=== PATIENT | female | born 1935 | race Caucasian/White ===

== ENCOUNTER 2019-04-11 05:11 | Inpatient (IN) ==
[2019-04-11] MEDS ORDERED: *HR* Metoprolol 5 MG/5 ML VIAL IVP PRN ×3 (08:18→16:32)
[2019-04-11] MEDS ORDERED: Naloxone 0.4 MG/ML INJ IVP PRN ×3 (09:16→16:32)
[2019-04-11] MEDS ORDERED: 0.9 % Sodium Chloride 1,000 ML IVC SCH ×2 (09:30→10:17)
--- NOTE | 2019-04-11 09:44 | Internal Med History&Physical ---
<NabilnubiaanandAlexis hernandez - Last Filed: 04/11/19 16:34> Date of Encounter: 04/11/19 Time of Encounter: 09:15 Internal Medicine - H&P: HPI Chief complaint: Palpitations Admitted From: Hospital to Hospital Transfer History of present illness: Ms. Barrios is a 83 year old female with a past medical history of atrial fibrillation, coronary artery disease status post stent 2(2001, 2007), hypertension, [place] (2001), breast cancer with a past surgical history of a left mass chest left mastectomy that presents for palpitations. Patient says that she was recently diagnosed with atrial fibrillation 2 weeks ago at [facility]. Patient said that she normally sees Dr. Damico her systems software engineer at [facility]. After her diagnosis he had increased her metoprolol from 50 mg twice a day to 75 mg twice a day. She was also prescribed Zarrella toe however she has not taken it yet due to it being a mail-order medication that has not arrived ye t. She notes that last night 2 hours prior to presentation she was experiencing heart palpitations. Denied any chest pain or shortness of breath. He was taken to [facility] where she was noted to be in A. fib RVR with a heart rate of 120- 123. Patient was given 2 rounds of Cardizem but that that would not seem to help control her heart rate. Blood pressure was stable. Patient had had her Cardizem drip increased to 15 and was given metoprolol however did that did not seem to help again with her heart rate. She was subsequently started on Xarelto. Past Med Surg Social Fam HX - Past Medical History Medical history: atrial fibrillation, cancer, coronary artery disease, hypertension, malignancy, myocardial infarction Additional medical history: BREAST CANCER 2005 Psychiatric history: no psych history - Past Surgical History Surgical History: cholecystectomy, hysterectomy, knee replacement Additional surgical history: Lumpectomy. Left breast mastectomy. 2 cardiac strents - Social History Smoking Status: Former smoker Smokeless Tobacco Status: No Alcohol use: none Drug use: none - Family History Mother Adopted: No Living Status: Hx Family Cardiac Disorders: Yes Father Living Status: Hx Family Cancer: Yes (mouth cancer) Internal Medicine - H&P: Meds Aspirin 81 mg PO DAILY 07/20/15 [History] Esomeprazole Magnesium [Nexium] 40 mg PO DAILY 07/20/15 [History] Nitroglycerin [Nitrostat] 0.4 mg SL DAILY PRN 07/20/15 [History] Atorvastatin [Lipitor] 40 mg PO HS 04/11/19 [History] Losartan Potassium 100 mg PO DAILY 04/11/19 [History] Metoprolol Tartrate 75 mg PO BID 04/11/19 [History] NIFEdipine XL (24 HR) [Procardia XL] 60 mg PO DAILY 04/11/19 [History] Rivaroxaban [Xarelto] 20 mg PO 1800 04/11/19 [History] Allergy/AdvReac Type Severity Reaction Status Date / Time Amoxicillin Allergy Rash Verified 04/11/19 16:31 azithromycin Allergy Hives Verified 04/11/19 16:31 [From Zithromax Z-Evans] Sulfa (Sulfonamide Allergy Hives Verified 04/11/19 16:31 Antibiotics) All Systems PM: A 10-system review of systems was performed and is negative for pertinent findings except as documented above in the HPI. - Constitutional Constitutional: no chills, no fever(s), no night sweats - EENT Eyes: no blurry vision - Cardiovascular Cardiovascular ROS IM: palpitations, no chest pain, no diaphoresis, no dyspnea, no lightheadedness, no syncope - Respiratory Respiratory: no cough, no dyspnea, no wheezing, no excessive phlegm production - Gastrointestinal Gastrointestinal: no abdominal pain, no diarrhea, no hematemesis, no hematochezia, no melena, no nausea, no vomiting - Neurological Neurological ROS: no confusion, no dizziness, no headache(s) - Constitutional Vitals: Temp Pulse Resp BP Pulse Ox 98.1 F 121 15 143/87 96 04/11/19 06:41 04/11/19 08:55 04/11/19 08:55 04/11/19 08:55 04/11/19 08:55 Exam: GENERAL APPEARANCE: Well developed, well nourished, alert and cooperative, and appears to be in no acute distress. HEAD: normocephalic. EYES: PERRL, EOMI. Fundi normal, vision is grossly intact. EARS: Hearing grossly intact. NOSE: No nasal discharge. THROAT: Oral cavity and pharynx normal. No inflammation, swelling, exudate, or lesions. Teeth and gingiva in good general condition. NECK: Neck supple, non-tender without lymphadenopathy, masses or thyromegaly. CARDIAC: Normal S1 and S2. No S3, S4, no murmur. Rhythm is irregular. There is n o peripheral edema, cyanosis or pallor. Extremities are warm and well perfused. Capillary refill is less than 2 seconds. No carotid bruits. LUNGS: Clear to auscultation and percussion without rales, rhonchi, wheezing or diminished breath sounds. ABDOMEN: Positive bowel sounds. Soft, nondistended, nontender. No guarding or rebound. No masses. MUSKULOSKELETAL: No joint erythema or tenderness. Normal muscular development. EXTREMITIES: No significant deformity or joint abnormality. No edema. Peripheral pulses intact. No varicosities. LOWER EXTREMITY: Examination of both feet reveals all toes to be normal in size and symmetry, normal range of motion, normal sensation with distal capillary filling of less than 2 seconds without tenderness, swelling, discoloration, nodules, weakness or deformity; examination of both ankles, knees, legs, and hips reveals normal range of motion, normal sensation without tenderness, swelling, discoloration, crepitus, weakness or deformity. NEUROLOGICAL: CN II-XII intact. Strength and sensation symmetric and intact throughout. Reflexes 2+ throughout. Cerebellar testing normal. SKIN: Skin normal color, texture and turgor with no lesions or eruptions. PSYCHIATRIC: The mental examination revealed the patient was oriented to person, place, and time. Internal Med - H&P Results - Labs CBC & Chem 7: 04/11/19 09:52 04/11/19 09:52 - Assessment and Plan (1) Atrial fibrillation with RVR Current Visit: No Status: Acute Assessment and plan: Patient has been resistant to Cardizem as well as when necessary metoprolol doses. Was not on any anticoagulation prior to presentation. Was started on Xarelto last night around 4 AM and the ER. Denies any chest pain or shortness of breath. Troponin has been negative. BNP is not significantly elevated. Chest x-ray was normal. Magnesium and calcium levels were within normal limits. Heart rate continues to be in the 120s to 130s. Blood pressure stable. Plan: - Continue with Cardizem drip for now. We will reassess later and titrate as needed. - Cardiology consult in. - Resume home dose of metoprolol 75 mg twice a day. - Hold home medication of Procardia. - Restart aspirin. - Restart statin. - We will start heparin drip tomorrow at 4 AM since last dose of Xarelto was at 4 AM. - We will order echocardiogram. - We will try to obtain records from [place]. Update @3565: Patient's HR was been normalizing. Last HR of 80-100 range. Echocardiogram unremarkable with a preserved ejection fraction no major valvular abnormalities. Plan: - Transition from IV cardizem to PO 240 mg extended release Cardizem. - C/W telemetry. - C/W ASA. - Will continue with xarelto instead of heparin drip. - C/W home metoprolol 100 mg BID. (2) Hypertension Current Visit: No Status: Chronic Assessment and plan: BP controlled. - Continue to with metoprolol. Qualifiers: Hypertension type: essential hypertension Qualified Code(s): I10 - Essential (primary) hypertension (3) CKD (chronic kidney disease) stage 3, GFR 30-59 ml/min Current Visit: No Status: Chronic Assessment and plan: Current renal function is within normal limites with a creatinine of 0.81 and a GFR > 60. - Avoid nephrotoxic medications. (4) DVT prophylaxis Current Visit: Yes Status: Acute Assessment and plan: - On xarelto. - Time Spent With Patient Total time spent is greater than 50% in coordination of care (as documented) at patient's floor/unit and/or counseling patient: <Jensen Lechuga - Last Filed: 04/11/19 17:47> Date of Encounter: 04/11/19 Internal Medicine - H&P: HPI History of present illness: Ms. Barrios is a 83 year old female All Systems PM: A 10-system review of systems was performed and is negative for pertinent findings except as documented above in the HPI. - Constitutional Vitals: Temp Pulse Resp BP Pulse Ox 98.4 F 105 18 153/68 95 04/11/19 16:00 04/11/19 16:00 04/11/19 16:00 04/11/19 16:00 04/11/19 16:00 Internal Med - H&P Results - Labs CBC & Chem 7: 04/11/19 09:52 04/11/19 09:52 Labs: Short CBC 06/06/19 Range/Units 09:52 WBC 6.6 (4.3-11.1) K/mcL Hgb 13.8 (11.5-15.4) g/dL Hct 40.9 (35.3-44.9) % Plt Count 217 (140-400) K/mcL [facility] 04/11/19 09:52 Sodium 142 Potassium 4.0 Chloride 112 H Carbon Dioxide 21 L BUN 15 Creatinine 0.81 Glucose 115 H Calcium 9.5 - Impressions ITS Impressions Echocardiogram 04/11/19 09:55 Impressions: LVEF 65%. Normal LV chamber size and function. Mild concentric left ventricular hypertrophy. Indeterminate diastolic function. Normal right ventricular structure and function. No evidence of pulmonary hypertension. No significant valvular dysfunction. Left Ventricular Wall Motion: Rest Echo Findings All wall segments showed normal motion. Findings: Study Quality * Technically adequate exam. ECG Findings * Atrial fibrillation. Left Ventricle * LVEF 65%. * Normal LV chamber size and function. * Mild concentric left ventricular hypertrophy. * Indeterminate diastolic function. Right Ventricle * Normal right ventricular structure and function. Left Atrium * Moderately dilated left atrium. Right Atrium * Mildly dilated right atrium. Interatrial Septum * Interatrial septum not well evaluated. Aortic Valve * Trileaflet aortic valve. * Mildly calcified aortic valve leaflets. * No aortic regurgitation. * No aortic stenosis. Mitral Valve * Normal mitral valve structure. * Mild mitral regurgitation. * No mitral stenosis. Tricuspid Valve * Normal tricuspid valve structure and function. * Trace tricuspid regurgitation. * No evidence of pulmonary hypertension. Pulmonic Valve * Pulmonic valve is not well visualized. * No pulmonic regurgitation. Aorta * Normally sized aortic root. Pericardium * The pericardium appears normal. IVC * Normal IVC dimensions and inspiratory collapse. Pulmonary Artery * Pulmonary artery not well visualized. - Time Spent With Patient Total time spent is greater than 50% in coordination of care (as documented) at patient's floor/unit and/or counseling patient: - Attending Attestation I examined this patient and my medical decision-making was reviewed with the Resident Physician. I agree with the documented findings, disposition and treatment plan as described except to the extent set forth below.
[2019-04-11] MEDS ORDERED: Aspirin 81 MG TAB.CHEW PO SCH (09:45)
[2019-04-11 10:03] LABS: Hematocrit 40.9 % (35.3-44.9); Hemoglobin 13.8 g/dL (11.5-15.4); Mean Corpuscular HGB Conc 33.7 g/dL (31.6-35.5); Mean Corpuscular Hemoglobin 30.5 pg (28.0-33.3); Mean Corpuscular Volume 90.3 fL (83.0-100.0); Mean Platelet Volume 9.9 fL (9.4-12.4); Platelet Count 217 K/mcL (140-400); Red Blood Count 4.53 M/mcL (3.82-4.97); Red Cell Distribution Width 12.8 % (11.5-14.5); White Blood Count 6.6 K/mcL (4.3-11.1)
[2019-04-11 10:22] LABS: BUN/Creatinine Ratio 19 (6-26); Blood Urea Nitrogen 15 mg/dL (8-23); Calcium 9.5 mg/dL (8.6-10.3); Carbon Dioxide 21 mEq/L (23-29); Chloride 112 mEq/L (98-107); Glucose 115 mg/dL (70-105); Osmolality,Calculated 296 (280-300); Sodium 142 mEq/L (136-145); eGFR For African Americans > 60 (> 60); eGFR For Non-African Americans > 60 (> 60)
[2019-04-11] MEDS ORDERED: Diltiazem CD (24hr) 240 MG CAPSULE PO SCH (13:00)
--- NOTE | 2019-04-11 14:34 | Cardiology Consult Note ---
Date of Encounter: 04/11/19 Time of Encounter: 14:32 Assessment and Plan (1) Atrial fibrillation with RVR Current Visit: No Status: Acute Has agreed to start several toe for stroke risk reduction prescribed by her rubber stamp maker Cardizem CD told 40 mg daily and wean off IV Cardizem drip as above Echo unremarkable with a preserved ejection fraction no major valvular abnormalities Discussion w patient/family: The assessment and plan as outlined above was discussed with the patient and/or family members who expressed understanding and agreement. All questions were answered. Thank you for involving us in the care of your patient. Please call with any questions. History of Present Illness Consult date: 04/11/19 Consult reason: PAF Chief complaint: Palpitations History of present illness: Ms. Barrios is a 83 year old female with history of coronary artery disease status post-PCI in 2001 in 2007 here for paroxysmal atrial fibrillation. Patient felt palpitations with flip-flopping in her chest and presented to the emergency prep. Her echocardiogram shows a preserved ejection fraction with mild concentric LVH patient was seen by a rubber stamp maker who recommended xarelto which the patient has agreed to start. On presentation she had a rapid ventricular response at 130 bpm currently less than 100 on a Cardizem IV drip. We will start patient on 240 mg extended release Cardizem and wean off IV drip to a heart rate less than 100's per minute. Hold for a systolic blood pressure less than 110 mmHg Past Med Surg Social Fam HX - Past Medical History Medical history: atrial fibrillation, cancer, coronary artery disease, hypertension, malignancy, myocardial infarction Additional medical history: BREAST CANCER 2006 Psychiatric history: no psych history - Past Surgical History Surgical History: cholecystectomy, hysterectomy, knee replacement Additional surgical history: Lumpectomy. Left breast mastectomy. 2 cardiac strents - Social History Smoking Status: Former smoker Smokeless Tobacco Status: No Alcohol use: none Drug use: none - Family History Mother Adopted: No Living Status: Hx Family Cardiac Disorders: Yes Father Living Status: Hx Family Cancer: Yes (mouth cancer) Medications and Allergies Aspirin 81 mg PO DAILY 07/20/15 [History] Atorvastatin [Lipitor] 40 mg PO HS 07/20/15 [History] Esomeprazole Magnesium [Nexium] 40 mg PO DAILY 07/20/15 [History] Losartan [Cozaar] 100 mg PO DAILY 09/14/15 [History] NIFEdipine XL (24 HR) [Procardia XL] 60 mg PO DAILY 07/20/15 [History] Nitroglycerin [Nitrostat] 0.4 mg SL DAILY PRN 07/20/15 [History] Metoprolol [Lopressor] 75 mg PO BID 04/11/19 [History] Allergy/AdvReac Type Severity Reaction Status Date / Time Amoxicillin Allergy Rash Verified 04/11/19 01:42 azithromycin Allergy Hives Verified 04/11/19 01:42 [From Zithromax Z-Evans] Sulfa (Sulfonamide Allergy Hives Verified 04/11/19 01:42 Antibiotics) All Systems Review: The remainder of the systems were reviewed and are negative Physical Examination Vital Signs, Last 4 Hours Pulse Resp BP Pulse Ox 04/11/19 12:13 122 20 129/91 95 General: Conversant, No Apparent Distress HEENT: Atraumatic, Normocephaly, Mucus Membranes Moist Neck: No JVD, Normal carotid pulses Cardiac: Reg Rate and Rhythm, Normal S1 and S2, No Murmur Lungs: Normal Breath Sounds, No Wheeze, Rales, Rhonchi Neuro: Alert and responsive, No focal deficits noted Abdomen: Soft, Non-Tender Skin: No rashes noted on visualized skin Musculoskeletal: No Chest Wall Tenderness Extremities: No Clubbing, No Cyanosis, No Edema, Normal Pulses Results 04/11/19 09:52 04/11/19 09:52 Lab Results 04/11/19 04/11/19 09:52 09:52 WBC 6.6 Hgb 13.8 Hct 40.9 Plt Count 217 Sodium 142 Potassium 4.0 Chloride 112 H Carbon Dioxide 21 L BUN 15 Creatinine 0.81 Glucose 115 H Calcium 9.5 Consult Discharge Plan - Plan Referrals: Sandeep Orourke DO [Primary Care Provider] -
[2019-04-11] MEDS: 0.9 % Sodium Chloride 1,000 ML IVC SCH ×2 (19:28→19:52)
[2019-04-11] MEDS: Metoprolol 100 MG TABLET PO SCH (19:47)
[2019-04-11] MEDS ORDERED: Metoprolol 100 MG TABLET PO SCH (21:00)
[2019-04-12] MEDS ORDERED: *HR* Heparin 5,000 UNIT/ML VIAL IVP ONE (04:00)
[2019-04-12] MEDS ORDERED: *HR* Rivaroxaban 10 MG TABLET PO SCH ×2 (04:00→09:00)
[2019-04-12] MEDS ORDERED: *HR* Heparin 5,000 UNIT/ML VIAL IVP PRN ×2 (04:00)
[2019-04-12] MEDS ORDERED: Heparin 25,000 UNIT/250 ML D5W 25,000 UNIT/250 ML IV.SOLN IVC SCH (04:00)
[2019-04-12 06:44] LABS: Basophils # 0.1 K/mcL (0.0-0.2); Eosinophils # 0.1 K/mcL (0.0-0.6); Eosinophils % 1.3 %; Hematocrit 39.3 % (35.3-44.9); Immature Granulocytes % 0.2 % (0-4); Lymphocytes # 2.2 K/mcL (0.6-4.6); Mean Corpuscular HGB Conc 33.1 g/dL (31.6-35.5); Mean Corpuscular Hemoglobin 30.6 pg (28.0-33.3); Mean Corpuscular Volume 92.5 fL (83.0-100.0); Mean Platelet Volume 9.8 fL (9.4-12.4); Monocytes # 0.5 K/mcL (0.0-1.3); Monocytes % 8.1 %; Neutrophils # 3.2 K/mcL (1.6-8.9); Platelet Count 195 K/mcL (140-400); Red Blood Count 4.25 M/mcL (3.82-4.97); Red Cell Distribution Width 13.2 % (11.5-14.5); Segmented Neutrophils % 53.4 %
[2019-04-12 07:01] LABS: BUN/Creatinine Ratio 20 (6-26); Blood Urea Nitrogen 20 mg/dL (8-23); Calcium 9.1 mg/dL (8.6-10.3); Carbon Dioxide 21 mEq/L (23-29); Chloride 114 mEq/L (98-107); Glucose 102 mg/dL (70-105); Osmolality,Calculated 297 (280-300); Potassium 3.9 mEq/L (3.5-5.1); Sodium 142 mEq/L (136-145); eGFR For African Americans > 60 (> 60); eGFR For Non-African Americans 52 (> 60)
[2019-04-12] MEDS ORDERED: Aspirin 81 MG TAB.CHEW PO SCH (09:00)
[2019-04-12] MEDS: Aspirin 81 MG TAB.CHEW PO SCH (09:27)
[2019-04-12] MEDS: Diltiazem CD (24hr) 240 MG CAPSULE PO SCH (09:27)
[2019-04-12] MEDS: Metoprolol 100 MG TABLET PO SCH (09:29)
--- NOTE | 2019-04-12 13:43 | Cardiology Progress Note ---
Date of Encounter: 04/12/19 Time of Encounter: 13:20 Assessment and Plan (1) PAF (paroxysmal atrial fibrillation) Current Visit: Yes Status: Acute Reports diagnosis of afib in October 2018--at that time coreg 25 mg BID was changed to metoprolol 50 mg BID. Recent hospitalization 2 weeks ago for Afib with RVR, at that time metoprolol was increased to 75 mg BID and was started on Xarelto 20 mg daily. Admitted yesterday for afib with RVR; started on Cardizem gtt and has transitioned to oral cardizem 240 mg daily. Converted to NSR, HR 70's-80's upon exam. SBP 110's-120's--home losartan and procardia on hold, continue to monitor BP closely and restart if BP will tolerate--defer to primary service. Will decrease home dose of BB to 25 mg BID. Recommend continuation of Lopressor 25 mg BID and Cardizem 240 mg daily in the outpatient setting. Continue Xarelto for AC. No further inpatient recommendations, will coordinate outpatient follow-up with [facility]. Discussion w patient/family: The assessment and plan as outlined above was discussed with the patient and/or family members who expressed understanding and agreement. All questions were answered. Thank you for involving us in the care of your patient. Please call with any questions. The patient will be discussed and reviewed with Dr. Arriola, changes to be made accordingly. Subjective Principal diagnosis: Afib Interval history: Seen and examined. No complaints upon exam. Now in NSR. Remains in ICU d/t no bed availability. Up to chair. Objective Vital Signs, Last 4 Hours Temp Pulse Resp BP Pulse Ox 04/12/19 12:00 65 18 145/69 95 04/12/19 11:16 98.7 F General: Conversant, No Apparent Distress HEENT: Atraumatic, Normocephaly, Mucus Membranes Moist Neck: No JVD, Normal carotid pulses Cardiac: Reg Rate and Rhythm, Normal S1 and S2, No Murmur Lungs: Normal Breath Sounds, No Wheeze, Rales, Rhonchi Neuro: Alert and responsive, No focal deficits noted Abdomen: Soft, Non-Tender Skin: No rashes noted on visualized skin Musculoskeletal: No Chest Wall Tenderness Extremities: No Clubbing, No Cyanosis, No Edema, Normal Pulses Results 04/12/19 06:33 04/12/19 06:32 Lab Results 04/12/19 04/12/19 06:32 06:33 WBC 6.0 Hgb 13.0 Hct 39.3 Plt Count 195 Sodium 142 Potassium 3.9 Chloride 114 H Carbon Dioxide 21 L BUN 20 Creatinine 1.01 Glucose 102 Calcium 9.1 Active Medications Aspirin (Aspirin) 81 mg PO DAILY [facility] Stop: 10/11/19 09:46 Last Admin: 04/12/19 09:27 Dose: 81 mg Documented by: Atorvastatin Calcium (Lipitor) 40 mg PO HS [facility] Stop: 10/11/19 21:01 Last Admin: 04/11/19 19:55 Dose: Not Given Documented by: Diltiazem HCl (Cardizem Cd) 240 mg PO DAILY [facility] Stop: 10/11/19 13:01 Last Admin: 04/12/19 09:27 Dose: 240 mg Documented by: Metoprolol Tartrate (Lopressor) 5 mg IVP Q6HR PRN PRN Reason: SEE COMMENTS Stop: 10/11/19 08:19 Last Admin: 04/11/19 17:32 Dose: 5 mg Documented by: Metoprolol Tartrate (Lopressor) 25 mg PO BID [facility] Stop: 10/12/19 21:01 Naloxone HCl (Narcan) 0.4 mg IVP Q2MPRN PRN PRN Reason: SEE COMMENTS Stop: 10/11/19 09:17 Omeprazole (Prilosec) 40 mg PO 0730 [facility] Stop: 10/12/19 08:31 Last Admin: 04/12/19 09:27 Dose: 40 mg Documented by: Rivaroxaban (Xarelto) 15 mg PO 1700 [facility] Stop: 10/13/19 17:01 - Imaging and Cardiology Echo: report reviewed - EKG Interpretation EKG results cardiology: personally reviewed Consult Discharge Plan - Plan Referrals: Sandeep Orourke, DO [Primary Care Provider] -
--- NOTE | 2019-04-12 14:50 | Electrocardiograph Report ---
[address] [place] [address] Test Date: 2019-04-11 Pat Name: Susan Barrios Department: 109 Room: 11 Gender: F Home Aid: : 1935 Requested By: Bonnie Johansen Order Number: [id number] Reading MD: Pedro Arriola Measurements Intervals [place] Rate: 56 P: 52 ME: 153 QRS: -4 QRSD: 92 T: 29 QT: 414 QTc: 406 Interpretive Statements SINUS BRADYCARDIA WITH OCCASIONAL SUPRAVENTRICULAR PREMATURE COMPLEXES INFERIOR MYOCARDIAL INFARCTION, PROBABLY OLD Electronically Signed On 04-12-2019 14:47:56 EDT by Pedro Arriola
--- NOTE | 2019-04-12 14:53 | Internal Med Progress Note ---
<NabilnubiaanandAlexis hernandez - Last Filed: 04/12/19 14:50> Hospitalist Progress Note - Encounter Date of Encounter: 04/12/19 Time of Encounter: 09:00 - Subjective Interval History: When seen today patient denies any chest pain, shortness of breath. She admits to a little nausea but denies any vomiting. She denies any palpitations. Griffin es any abdominal pain. - Exam Vitals: Temp Pulse Resp BP Pulse Ox 98.7 F 65 18 145/69 95 04/12/19 11:16 04/12/19 12:00 04/12/19 12:00 04/12/19 12:00 04/12/19 12:00 Exam: GENERAL APPEARANCE: Well developed, well nourished, alert and cooperative, and appears to be in no acute distress. HEAD: normocephalic. EYES: PERRL, EOMI. Fundi normal, vision is grossly intact. EARS: Hearing grossly intact. NOSE: No nasal discharge. THROAT: Oral cavity and pharynx normal. No inflammation, swelling, exudate, or lesions. Teeth and gingiva in good general condition. NECK: Neck supple, non-tender without lymphadenopathy, masses or thyromegaly. CARDIAC: Normal S1 and S2. No S3, S4, no murmur. Rhythm is irregular. There is no peripheral edema, cyanosis or pallor. Extremities are warm and well perfused. Capillary refill is less than 2 seconds. No carotid bruits. LUNGS: Clear to auscultation and percussion without rales, rhonchi, wheezing or diminished breath sounds. ABDOMEN: Positive bowel sounds. Soft, nondistended, nontender. No guarding or rebound. No masses. MUSKULOSKELETAL: No joint erythema or tenderness. Normal muscular development. EXTREMITIES: No significant deformity or joint abnormality. No edema. Peripheral pulses intact. No varicosities. LOWER EXTREMITY: Examination of both feet reveals all toes to be normal in size and symmetry, normal range of motion, normal sensation with distal capillary filling of less than 2 seconds without tenderness, swelling, discoloration, nodules, weakness or deformity; examination of both ankles, knees, legs, and hips reveals normal range of motion, normal sensation without tenderness, swelling, discoloration, crepitus, weakness or deformity. SKIN: Skin normal color, texture and turgor with no lesions or eruptions. PSYCHIATRIC: The mental examination revealed the patient was oriented to person, place, and time. - Assessment and Plan (1) Atrial fibrillation with RVR Current Visit: No Status: Acute Assessment and Plan: Last night patient's alarm went off which showed that she went into asystole. Upon entering the room nurse noted that patient's heart rate converted back to sinus rhythm but was then noted to be bradycardic in the 40s. Her Cardizem drip was turned off. Her heart rate started climbing back up. She was noted to be a bit hypotensive at 71/57. Her BP currently today shows 130/56 with a heart rate of 56. Plan: - Continue Lopressor 25 mg twice a day and Cardizem 240 mg daily. - Continue with Xarelto 15 mg. - Continue with aspirin. - Continue with statin. (2) Hypertension Current Visit: No Status: Chronic Assessment and Plan: BP controlled. - Continue to with metoprolol. (3) CKD (chronic kidney disease) stage 3, GFR 30-59 ml/min Current Visit: No Status: Chronic Assessment and Plan: Current renal function is within normal limits with a creatinine of 1.01 and a GFR > 60. - Avoid nephrotoxic medications. (4) DVT prophylaxis Current Visit: Yes Status: Acute Assessment and Plan: - On xarelto. - Time Spent with Patient Total time spent is greater than 50% in coordination of care (as documented) at patient's floor/unit and/or counseling patient: Internal Medicine: Result - Labs CBC & Chem 7: 04/12/19 06:33 04/12/19 06:32 Labs: Short CBC 04/12/19 Range/Units 06:33 WBC 6.0 (4.3-11.1) K/mcL Hgb 13.0 (11.5-15.4) g/dL Hct 39.3 (35.3-44.9) % Plt Count 195 (140-400) K/mcL Neutrophils # 3.2 (1.6-8.9) K/mcL BMP 04/12/19 06:32 Sodium 142 Potassium 3.9 Chloride 114 H Carbon Dioxide 21 L BUN 20 Creatinine 1.01 Glucose 102 Calcium 9.1 Consult Discharge Plan - Plan Referrals: Sandeep Orourke, DO [Primary Care Provider] - <Jensen Lechuga - Last Filed: 04/12/19 19:10> Hospitalist Progress Note - Encounter Date of Encounter: 04/12/19 - Exam Vitals: Temp Pulse Resp BP Pulse Ox 98.7 F 60 22 152/60 97 04/12/19 11:16 04/12/19 16:00 04/12/19 16:00 04/12/19 16:00 04/12/19 16:00 - Time Spent with Patient Total time spent is greater than 50% in coordination of care (as documented) at patient's floor/unit and/or counseling patient: Internal Medicine: Result - Labs CBC & Chem 7: 04/12/19 06:33 04/12/19 06:32 Labs: Short CBC 04/12/19 Range/Units 06:33 WBC 6.0 (4.3-11.1) K/mcL Hgb 13.0 (11.5-15.4) g/dL Hct 39.3 (35.3-44.9) % Plt Count 195 (140-400) K/mcL Neutrophils # 3.2 (1.6-8.9) K/mcL BMP 04/12/19 06:32 Sodium 142 Potassium 3.9 Chloride 114 H Carbon Dioxide 21 L BUN 20 Creatinine 1.01 Glucose 102 Calcium 9.1 - Attending Attestation I examined this patient and my medical decision-making was reviewed with the Resident Physician. I agree with the documented findings, disposition and treatment plan as described except to the extent set forth below. _ <Alexis Mcintosh - Last Filed: 04/12/19 14:50> (2) Hypertension Qualifiers: Hypertension type: essential hypertension Qualified Code(s): I10 - Essential (primary) hypertension
[2019-04-13] MEDS: Diltiazem CD (24hr) 240 MG CAPSULE PO SCH (08:40)
[2019-04-13] MEDS: Aspirin 81 MG TAB.CHEW PO SCH (08:41)
--- NOTE | 2019-04-13 10:36 | Discharge Summary ---
- NOTES TO OUTPATIENT PROVIDER Notes to Outpatient Provider: - Following up with Cardiology for HR medication titration. Date of Encounter: 04/13/19 Time of Encounter: 10:33 - Discharge Diagnosis (1) Atrial fibrillation with RVR Priority: Primary Status: Acute (2) DVT prophylaxis Priority: Secondary Status: Acute (3) CKD (chronic kidney disease) stage 3, GFR 30-59 ml/min Priority: Secondary Status: Chronic (4) Hypertension Priority: Secondary Status: Chronic Qualifiers: Hypertension type: essential hypertension Qualified Code(s): I10 - Essential (primary) hypertension Hospital course: Ms. Barrios is a 83 year old female with a past medical history of atrial fibrillation, coronary artery disease status post stent 2(2001, 2007), hypertension, [place] (2001), breast cancer with a past surgical history of a left mass chest left mastectomy that presents for palpitations. Patient says that she was recently diagnosed with atrial fibrillation 2 weeks ago at [facility]. Patient said that she normally sees Dr. Damico her senior underwriter at [facility]. After her diagnosis he had increased her metoprolol from 50 mg twice a day to 75 mg twice a day. She was also prescribed Zarrella toe however she has not taken it yet due to it being a mail-order medication that has not arrived yet. She notes that last night 2 hours prior to presentation she was experiencing heart palpitations. Denied any chest pain or shortness of breath. He was taken to [facility] where she was noted to be in A. fib RVR with a heart rate of 120-123. Patient was given 2 rounds of Cardizem but that that would not seem to help control her heart rate. Blood pressure was stable. Patient had had her Cardizem drip increased to 15 and was given metoprolol however did that did not seem to help again with her heart rate. She was subsequently started on Xarelto. She was continued on Cardizem drip and then transitioned to Cardizem CD 240 mg daily along with her home dose of metoprolol tartrate 100 mg BID. Her heart rate did improve but had some bradycardia so metoprolol was decreased to 25 mg BID. She was monitored on telemetry and had no acute issues. She was discharged home in stable condition. She has follow-up to be scheduled with PCP and Cardiology. - Time Spent with Patient Total time spent providing and/or coordinating discharge services: - Discharge Medications Prescriptions: New Diltiazem CD (24hr) [Cardizem CD] 240 mg PO DAILY #10 cap.er.24h Metoprolol [Lopressor] 25 mg PO BID #20 tablet Rivaroxaban [Xarelto] 15 mg PO 1700 #10 tablet Continued Aspirin 81 mg PO DAILY Nitroglycerin [Nitrostat] 0.4 mg SL DAILY PRN PRN Reason: Chest Pain Esomeprazole Magnesium [Nexium] 40 mg PO DAILY Losartan Potassium 100 mg PO DAILY Atorvastatin [Lipitor] 40 mg PO HS Rivaroxaban [Xarelto] 20 mg PO 1800 Discontinued Metoprolol Tartrate 75 mg PO BID NIFEdipine XL (24 HR) [Procardia XL] 60 mg PO DAILY Home Medications: Aspirin 81 mg PO DAILY 07/20/15 [History] Esomeprazole Magnesium [Nexium] 40 mg PO DAILY 07/20/15 [History] Nitroglycerin [Nitrostat] 0.4 mg SL DAILY PRN 07/20/15 [History] Atorvastatin [Lipitor] 40 mg PO HS 04/11/19 [History] Losartan Potassium 100 mg PO DAILY 04/11/19 [History] Rivaroxaban [Xarelto] 20 mg PO 1800 04/11/19 [History] Diltiazem CD (24hr) [Cardizem CD] 240 mg PO DAILY #10 cap.er.24h 04/13/19 [Rx] Diltiazem CD (24hr) [Cardizem CD] 240 mg PO DAILY #90 cap.er.24h 04/13/19 [Rx] Metoprolol [Lopressor] 25 mg PO BID #180 tablet 04/13/19 [Rx] Metoprolol [Lopressor] 25 mg PO BID #20 tablet 04/13/19 [Rx] Rivaroxaban [Xarelto] 20 mg PO DAILY #10 tablet 04/13/19 [Rx] Rivaroxaban [Xarelto] 20 mg PO DAILY #90 tablet 04/13/19 [Rx] Allergies/Adverse Reactions: Allergy/AdvReac Type Severity Reaction Status Date / Time Amoxicillin Allergy Rash Verified 04/11/19 16:31 azithromycin Allergy Hives Verified 04/11/19 16:31 [From Zithromax Z-Evans] Sulfa (Sulfonamide Allergy Hives Verified 04/11/19 16:31 Antibiotics) Date of admission: 04/12/19 14:51 Primary care physician: Sandeep Orourke DO Consults: 04/11/19 09:23 Consult to Cardiology [CONS] Routine Comment: Consulting Provider: Cardiology Mica Reason for Consult: A-Fib RVR Call Completed: Yes Discharging clinician: Jensen Lechuga - Constitutional Vitals: Temp Pulse Resp BP Pulse Ox 97 F L 63 16 154/78 98 04/13/19 07:20 04/13/19 07:20 04/13/19 07:20 04/13/19 07:20 04/13/19 07:20 Exam: GENERAL APPEARANCE: Well developed, well nourished, alert and cooperative, and appears to be in no acute distress. HEAD: normocephalic. EYES: PERRL, EOMI. Fundi normal, vision is grossly intact. EARS: Hearing grossly intact. NOSE: No nasal discharge. THROAT: Oral cavity and pharynx normal. No inflammation, swelling, exudate, or lesions. Teeth and gingiva in good general condition. NECK: Neck supple, non-tender without lymphadenopathy, masses or thyromegaly. CARDIAC: Normal S1 and S2. No S3, S4, no murmur. Rhythm is irregular. There is no peripheral edema, cyanosis or pallor. Extremities are warm and well perfused. Capillary refill is less than 2 seconds. No carotid bruits. LUNGS: Clear to auscultation and percussion without rales, rhonchi, wheezing or diminished breath sounds. ABDOMEN: Positive bowel sounds. Soft, nondistended, nontender. No guarding or rebound. No masses. MUSKULOSKELETAL: No joint erythema or tenderness. Normal muscular development. EXTREMITIES: No significant deformity or joint abnormality. No edema. Peripheral pulses intact. No varicosities. LOWER EXTREMITY: Examination of both feet reveals all toes to be normal in size and symmetry, normal range of motion, normal sensation with distal capillary filling of less than 2 seconds without tenderness, swelling, discoloration, nodules, weakness or deformity; examination of both ankles, knees, legs, and hips reveals normal range of motion, normal sensation without tenderness, swelling, discoloration, crepitus, weakness or deformity. SKIN: Skin normal color, texture and turgor with no lesions or eruptions. PSYCHIATRIC: The mental examination revealed the patient was oriented to person, place, and time. - Patient Status Disposition: Home, Self-Care Condition: Good Functional capacity at discharge: independent ambulation Overall status at discharge: patient is back to baseline - Discharge Instructions Follow Up With: Sandeep Orourke DO [Primary Care Provider] - - Diet and Activity Activity: return to work once cleared by your PCP/specialist Diet: advance to your usual diet
[2019-04-13] MEDS: *HR* Rivaroxaban 15 MG TABLET PO SCH (17:56)
[2019-04-14] MEDS: Aspirin 81 MG TAB.CHEW PO SCH (08:15)
[2019-04-14] MEDS ORDERED: Diltiazem CD (24hr) 180 MG CAPSULE PO SCH (09:00)
--- NOTE | 2019-04-14 10:52 | Event Note ---
Date of Encounter: 04/14/19 Time of Encounter: 10:49 S: No acute events. She denies cp, SOB, n/v, diaphoresis, palpitations, numbness/tingling. O: VS: reviewed, HR running 50s-60s asymptomatic. No labs needed today. Gen: NAD, AAO x3, pleasant. Head: NC, AT ENT: MMM, no lymphadenopathy CVS: Kierra cardic, regular rhythm, tibial and radial pulses palpable 2+ equally. Lungs: CTAB Abd: Soft, Nt/ND, normal bowel sounds. Ext: No edema. 1: A fib with RVR - Continue metoprolol tartrate 25 mg BID, Cardizem CD 180 mg daily, was decreas ed this AM because yesterday had multiple kierra episodes on tele. She has been asymptomatic. If HR >60 bpm today, can be dsic
[2019-04-14 15:32] VITALS: BP 161/78
[2019-04-14] MEDS: *HR* Rivaroxaban 15 MG TABLET PO SCH (16:02)
== END 2019-04-14 18:24 | disposition home or self-care (01) | DRG 310 ==
LOC: 2ANU → SUATTDRO 05:50 → ICNU 10:23 → 2NENU 04-12 18:08
PROVIDERS: ADMIT Internal Medicine; ATTEND Student in an Organized Health Care Education/Training Program

== ENCOUNTER 2022-02-08 14:56 | Inpatient (IN) ==
[2022-02-08 18:02] LABS: Bacteria,Urine Few per hpf (None-Few); Bilirubin,Urine Negative (Negative); Blood,Urine Trace (Negative); Clarity,Urine Clear (Clear); Color,Urine Light-Yellow (Yellow); Glucose,Urine (UA) Normal (Normal); Ketones,Urine Negative (Negative); Leukocyte Esterase,Urine Small (Negative); Mucus,Urine Few per lpf (None-Few); Nitrite,Urine Positive (Negative); PH,Urine 5.5 pH Units (5.0-8.0); Protein,Urine Negative (Neg-Trace); RBC,Urine 0-3 per hpf (0-3); Specific Gravity,Urine 1.011 (1.010-1.025); Squamous Epithelial Cell,Urine Few per hpf (None-Few); Urobilinogen,Urine Normal (Normal)
[2022-02-08 18:02] LABS: Basophils # 0.1 K/mcL (0.0-0.2); Basophils % 0.7 %; Eosinophils % 0.6 %; Hematocrit 37.4 % (35.3-44.9); Hemoglobin 11.3 g/dL (11.5-15.4); Immature Granulocytes % 0.3 % (0-4); Lymphocytes # 1.9 K/mcL (0.6-4.6); Lymphocytes % 27.4 %; Mean Corpuscular HGB Conc 30.2 g/dL (31.6-35.5); Mean Corpuscular Hemoglobin 24.6 pg (28.0-33.3); Mean Corpuscular Volume 81.3 fL (83.0-100.0); Mean Platelet Volume 9.8 fL (9.4-12.4); Monocytes # 0.4 K/mcL (0.0-1.3); Monocytes % 5.4 %; Neutrophils # 4.5 K/mcL (1.6-8.9); Platelet Count 324 K/mcL (140-400); Segmented Neutrophils % 65.6 %; White Blood Count 6.8 K/mcL (4.3-11.1)
[2022-02-08 18:15] LABS: Albumin 4.2 g/dL (3.5-5.7); Albumin/Globulin Ratio 1.1 (1.1-2.2); Bilirubin,Total 0.8 mg/dL (0.3-1.0); Globulin 3.8 g/dL (2.4-3.5); Potassium 3.8 mEq/L (3.5-5.1)
[2022-02-08 18:30] LABS: Troponin I 0.07 ng/mL (< 0.04)
[2022-02-08] MEDS ORDERED: cefTRIAXone 1,000 MG in 0.9 % Sodium Chloride 10 ML IVP ONE (18:51)
[2022-02-08] MEDS ORDERED: *HR* Heparin 5,000 UNIT/ML VIAL IVP ONE (18:58)
[2022-02-08] MEDS ORDERED: *HR* Heparin 5,000 UNIT/ML VIAL IVP PRN ×2 (18:58)
[2022-02-08] MEDS ORDERED: Heparin 25,000UNIT/250ML 1/2NS 25,000 UNIT/250 ML IV.SOLN IVC SCH ×2 (19:00→19:06)
[2022-02-08] MEDS ORDERED: Ondansetron 4 MG/2 ML VIAL IVP ONE (19:32)
[2022-02-08] MEDS ORDERED: Aspirin 81 MG TAB.CHEW PO SCH (19:45)
[2022-02-08 20:28] LABS: Hemoglobin 11.8 g/dL (11.5-15.4); Mean Corpuscular HGB Conc 30.3 g/dL (31.6-35.5); Mean Corpuscular Hemoglobin 24.6 pg (28.0-33.3); Mean Corpuscular Volume 81.4 fL (83.0-100.0); Mean Platelet Volume 10.2 fL (9.4-12.4); Platelet Count 277 K/mcL (140-400); Red Blood Count 4.79 M/mcL (3.82-4.97); White Blood Count 5.8 K/mcL (4.3-11.1)
[2022-02-08 20:38] LABS: INR 1.7
[2022-02-08] MEDS ORDERED: Aspirin 81 MG TAB.CHEW PO ONE (20:41)
[2022-02-08 20:46] LABS: Heparin anti-factor XA UFH 1.86 IU/mL (0.30-0.70)
[2022-02-08] MEDS ORDERED: Acetaminophen 325 MG TABLET PO PRN (21:46)
[2022-02-08] MEDS ORDERED: Naloxone 0.4 MG/ML INJ IVP PRN (21:46)
[2022-02-08] MEDS ORDERED: Perflutren Lipid Microsphere 1.3 ML in 0.9 % Sodium Chloride 8.7 ML IVP PRN (21:48)
[2022-02-08] MEDS: hydrALAZINE 25 MG TABLET PO SCH (22:32)
[2022-02-08] MEDS: DilTIAZem CD (24hr) 180 MG CAP.ER.24H PO SCH (22:33)
[2022-02-09 00:56] LABS: Basophils # 0.1 K/mcL (0.0-0.2); Basophils % 0.9 %; Eosinophils # 0.1 K/mcL (0.0-0.6); Eosinophils % 1.9 %; Hematocrit 30.3 % (35.3-44.9); Immature Granulocytes % 0.4 % (0-4); Lymphocytes # 1.7 K/mcL (0.6-4.6); Mean Corpuscular Hemoglobin 25.6 pg (28.0-33.3); Mean Corpuscular Volume 79.9 fL (83.0-100.0); Mean Platelet Volume 9.6 fL (9.4-12.4); Monocytes # 0.4 K/mcL (0.0-1.3); Monocytes % 6.9 %; Neutrophils # 3.5 K/mcL (1.6-8.9); Platelet Count 238 K/mcL (140-400); Red Blood Count 3.79 M/mcL (3.82-4.97); Red Cell Distribution Width 15.9 % (11.5-14.5); Segmented Neutrophils % 60.9 %; White Blood Count 5.7 K/mcL (4.3-11.1)
[2022-02-09 00:58] LABS: Hemoglobin 9.7 g/dL (11.5-15.4)
[2022-02-09 01:15] LABS: Calcium 9.2 mg/dL (8.6-10.3); Chol/HDL Ratio 3.5 (0-4.9)
[2022-02-09 01:21] LABS: Troponin I 0.06 ng/mL (< 0.04)
[2022-02-09 01:33] LABS: Thyroid Stimulating Hormone 1.747 mcIU/mL (0.340-5.600)
[2022-02-09] MEDS: Ondansetron 4 MG/2 ML VIAL IVP PRN (05:02)
[2022-02-09] MEDS: hydrALAZINE 25 MG TABLET PO SCH ×3 (07:39→20:05)
[2022-02-09] MEDS: Aspirin 81 MG TAB.CHEW PO SCH (07:39)
[2022-02-09] MEDS: DilTIAZem CD (24hr) 180 MG CAP.ER.24H PO SCH (07:39)
[2022-02-09] MEDS: cefTRIAXone 1,000 MG in 0.9 % Sodium Chloride 10 ML IVP SCH (07:40)
[2022-02-09] MEDS: *HR* Heparin 5,000 UNIT/ML VIAL SQ SCH (17:29)
[2022-02-09] MEDS: Melatonin 3 MG TABLET PO PRN (20:05)
[2022-02-10 01:51] LABS: Eosinophils # 0.1 K/mcL (0.0-0.6); Eosinophils % 2.9 %; Hematocrit 28.4 % (35.3-44.9); Hemoglobin 8.6 g/dL (11.5-15.4); Immature Granulocytes % 0.2 % (0-4); Lymphocytes # 1.5 K/mcL (0.6-4.6); Lymphocytes % 35.2 %; Mean Corpuscular HGB Conc 30.3 g/dL (31.6-35.5); Mean Corpuscular Hemoglobin 24.3 pg (28.0-33.3); Mean Corpuscular Volume 80.2 fL (83.0-100.0); Mean Platelet Volume 9.6 fL (9.4-12.4); Monocytes # 0.4 K/mcL (0.0-1.3); Monocytes % 10.4 %; Neutrophils # 2.1 K/mcL (1.6-8.9); Platelet Count 196 K/mcL (140-400); Red Blood Count 3.54 M/mcL (3.82-4.97); Red Cell Distribution Width 16.3 % (11.5-14.5); Segmented Neutrophils % 50.3 %; White Blood Count 4.2 K/mcL (4.3-11.1)
[2022-02-10 02:10] LABS: Calcium 8.6 mg/dL (8.6-10.3); Potassium 3.8 mEq/L (3.5-5.1)
[2022-02-10] MEDS: *HR* Heparin 5,000 UNIT/ML VIAL SQ SCH (05:52)
[2022-02-10] MEDS: cefTRIAXone 1,000 MG in 0.9 % Sodium Chloride 10 ML IVP SCH (08:06)
[2022-02-10] MEDS: *HR* Rivaroxaban 15 MG TABLET PO SCH (08:07)
[2022-02-10] MEDS: hydrALAZINE 25 MG TABLET PO SCH ×3 (08:07→19:28)
[2022-02-10] MEDS: Aspirin 81 MG TAB.CHEW PO SCH (08:07)
[2022-02-10] MEDS: DilTIAZem CD (24hr) 180 MG CAP.ER.24H PO SCH (08:07)
[2022-02-10 09:00] LABS: % Iron Saturation 4 % (15-50); Iron 19 mcg/dL (50-170); Transferrin 337 mg/dL (203-362)
[2022-02-10 09:21] LABS: Folate 11.3 ng/mL (3.0-16.0)
[2022-02-10 11:56] LABS: Ferritin 21 ng/mL (10-120)
[2022-02-10 18:42] LABS: Sodium, Urine 54.5 mEq/L
[2022-02-11] MEDS: Melatonin 3 MG TABLET PO PRN ×2 (00:26→21:54)
[2022-02-11 05:37] LABS: Basophils % 0.8 %; Eosinophils # 0.2 K/mcL (0.0-0.6); Eosinophils % 3.1 %; Hemoglobin 8.9 g/dL (11.5-15.4); Immature Granulocytes % 0.4 % (0-4); Lymphocytes # 1.3 K/mcL (0.6-4.6); Lymphocytes % 26.8 %; Mean Corpuscular HGB Conc 29.7 g/dL (31.6-35.5); Mean Corpuscular Hemoglobin 24.3 pg (28.0-33.3); Mean Platelet Volume 9.8 fL (9.4-12.4); Monocytes # 0.6 K/mcL (0.0-1.3); Monocytes % 11.7 %; Neutrophils # 2.7 K/mcL (1.6-8.9); Platelet Count 218 K/mcL (140-400); Red Blood Count 3.66 M/mcL (3.82-4.97); Red Cell Distribution Width 16.3 % (11.5-14.5); Segmented Neutrophils % 57.2 %; White Blood Count 4.8 K/mcL (4.3-11.1)
[2022-02-11 05:55] LABS: Calcium 8.9 mg/dL (8.6-10.3)
[2022-02-11] MEDS: hydrALAZINE 25 MG TABLET PO SCH ×3 (09:03→21:50)
[2022-02-11] MEDS: DilTIAZem CD (24hr) 180 MG CAP.ER.24H PO SCH (09:03)
[2022-02-11] MEDS: Aspirin 81 MG TAB.CHEW PO SCH (09:03)
[2022-02-11] MEDS: cefTRIAXone 1,000 MG in 0.9 % Sodium Chloride 10 ML IVP SCH (09:04)
[2022-02-11] MEDS: *HR* Rivaroxaban 15 MG TABLET PO SCH (09:04)
[2022-02-11] MEDS ORDERED: hydroCHLOROthiazide 25 MG TABLET PO ONE (09:44)
[2022-02-11] MEDS: Cefdinir 300 MG CAPSULE PO SCH (21:50)
[2022-02-12] MEDS: Ondansetron 4 MG/2 ML VIAL IVP PRN (05:23)
[2022-02-12] MEDS: Cefdinir 300 MG CAPSULE PO SCH (08:36)
[2022-02-12] MEDS: *HR* Rivaroxaban 15 MG TABLET PO SCH (08:36)
[2022-02-12] MEDS: DilTIAZem CD (24hr) 180 MG CAP.ER.24H PO SCH (08:37)
[2022-02-12] MEDS: Aspirin 81 MG TAB.CHEW PO SCH (08:37)
[2022-02-12] MEDS: hydrALAZINE 25 MG TABLET PO SCH ×2 (08:37→15:06)
[2022-02-12 09:20] LABS: Calcium 9.4 mg/dL (8.6-10.3)
[2022-02-12 11:10] VITALS: PULSE 58; TEMP 99; O2SAT 96
[2022-02-12 13:04] VITALS: BP 155/70
== END 2022-02-12 15:33 | disposition home or self-care (01) | DRG 280 ==
LOC: 3BNU 14:56 → EMEROOARM 14:56 → 3BNU 21:10
PROVIDERS: ADMIT Nurse Practitioner; ATTEND Student in an Organized Health Care Education/Training Program